=== PATIENT | female | born 1970 | race Caucasian/White ===

== ENCOUNTER 2017-08-07 07:00 | Inpatient (IN) | payer OTHER ==
--- NOTE | 2017-07-30 13:32 | HP ---
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 The MRI was c/w known cancer as well as a satellite lesion approx 8mm medial and superior to the main lesion. 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 Patient has opted to undergo a left breast WE with NL, snbx lympho, possible andx and right breast reduction mammoplasty. History Source: Patient Limitations to Obtaining History: No Limitations - Past Medical History Cardiovascular: Yes: Other (SVTs Raynauds) Gastrointestinal: Yes: Other (IBS) Psych: Yes: Depression Additional Past Medical History: h/o herpes narcolepsy cardiac ablation 2014 - Past Surgical History Past Surgical History: Yes: Cholecystectomy, Additional Past Surgical History: reduction mammoplasty (2000) Revision of mammoplasty (2001) Home Medications - Allergies Allergies/Adverse Reactions: Allergies Allergy/AdvReac Type Severity Reaction Status Date / Time Penicillins Allergy Verified 07/30/17 13:36 - Home Medications Home Medications (free text): alprazolam Family Disease History - Family Disease History Family Disease History: CA: Father (basal cell cancer), Mother (basal cell cancer ) Other Family History: paternal uncle-prostate cancer Review of Systems - Review of Systems Constitutional: reports: Malaise Cardiovascular: reports: Shortness of Breath, Other (syncope) Gastrointestinal: reports: Constipation, Diarrhea Psychiatric: reports: Depression Physical Examination Constitutional: Yes: Well Nourished, Calm Breast(s): Yes: Other (Patient has full C-cup breasts and well healed scars from mastopexy. No suspicious palpable masses or adenopathy noted bilaterally.) Problem List - Problems (1) Breast cancer, left Code(s): C50.912 - MALIGNANT NEOPLASM OF UNSPECIFIED SITE OF LEFT FEMALE BREAST Qualifiers: Breast location: upper outer quadrant of breast Estrogen receptor status: positive Patient sex: female Qualified Code(s): C50.412 - Malignant neoplasm of upper-outer quadrant of left female breast; Z17.0 - Estrogen receptor positive status [ER+] Assessment/Plan Plan left breast WE with NL, snbx, lymphoscintogram, possible andx and reconstruction.
[2017-08-05 12:25] VITALS: BMI 23.0
[2017-08-07] MEDS ORDERED: fentaNYL CITRATE 250 MCG/5 ML VIAL ONE (12:35)
[2017-08-07] MEDS ORDERED: LIDOCAINE HCL 2% JELLY (5 ML/TUBE) ONE (12:35)
[2017-08-07] MEDS ORDERED: DEXAMETHASONE SOD PHOSPHATE 4 MG/1 ML VIAL ONE (12:35)
[2017-08-07] MEDS ORDERED: ceFAZolin SODIUM 1 GM VIAL ONE (12:35)
[2017-08-07] MEDS ORDERED: PROPOFOL 20 ML ONE ×2 (12:35→15:59)
[2017-08-07] MEDS ORDERED: MIDAZOLAM HCL 2 MG/2 ML SINGLE DOSE VIAL ONE (12:35)
[2017-08-07] MEDS ORDERED: ONDANSETRON 4 MG/2 ML VIAL ONE (12:35)
[2017-08-07] MEDS ORDERED: LIDOCAINE HCL/PF 2% SDV 5ML VIAL ONE (12:35)
[2017-08-07] MEDS ORDERED: ROCURONIUM BROMIDE 50 MG/5 ML VIAL ONE (12:40)
[2017-08-07] MEDS ORDERED: CLINDAMYCIN PHOSPHATE 600 MG/4 ML VIAL ONE (13:17)
[2017-08-07] MEDS ORDERED: LIDOCAINE 1%/EPI 1:100000 (20 ML MULTI DOSE VIAL) ONE (13:19)
[2017-08-07] MEDS ORDERED: ISOSULFAN BLUE 10 MG/ML VIAL SQ ONE (13:19)
[2017-08-07] MEDS ORDERED: BUPIVACAINE HCL/PF 2.5 MG/ML - 30 ML VIAL IJ ONE (13:19)
[2017-08-07] MEDS ORDERED: LIDOCAINE 1%/EPI 1:100000 (50 ML MULTI DOSE VIAL) INF ONE (14:11)
[2017-08-07] MEDS ORDERED: ONDANSETRON 4 MG/2 ML VIAL IVPUSH PRN (14:23)
[2017-08-07] MEDS ORDERED: oxyCODONE HCL 5 MG TABLET PO PRN ×3 (14:23→15:32)
[2017-08-07] MEDS ORDERED: ACETAMINOPHEN 325 MG TABLET (FP) PO PRN (15:32)
[2017-08-07] MEDS ORDERED: ALPRAZolam 0.25 MG TABLET PO PRN (15:35)
[2017-08-07] MEDS ORDERED: DEXTROSE 5%-0.45% SALINE 1,000 ML IV SCH (15:45)
[2017-08-07] MEDS ORDERED: GLYCOPYRROLATE 0.2 MG/1 ML VIAL ONE (16:04)
[2017-08-07] MEDS ORDERED: NEOSTIGMINE METHYLSULFATE 0.5 MG/ML - 10 ML MDV ONE (16:04)
--- NOTE | 2017-08-07 16:43 | OP ---
Operative Note - Note: Operative Date: 08/07/17 Pre-Operative Diagnosis: left breast cancer Operation: right breast reduction for symmetry, oncoplastic reconstruction with reduction of left breast Surgeon: Humble Hinds Mold Closer Helper: Deborah Hutton Anesthesiologist/TWISTER HAND: Patience Mathis Anesthesia: General Estimated Blood Loss (mls): 30 Fluid Volume Replaced (mls): 1,300 Operative Report Dictated: Yes
--- NOTE | 2017-08-07 16:52 | SURG ---
Surgery Regulatory Affairs Assistant Note Regulatory Affairs Assistant: Deborah Hutton PA-C Date of Service: 08/07/17 Diagnosis: left breast cancer Procedure: right breast reduction for symmetry, oncoplastic reconstruction with reduction of the left breast I was present for the entirety of the operative procedure. For further detail, please refer to operative report. Visit type - Case Type Case Type: Scheduled - Emergency Emergency Visit: No - New patient This patient is new to me today: Yes Date on this admission: 08/07/17
--- NOTE | 2017-08-07 19:34 | OP ---
DATE OF OPERATION: 08/07/2017 PREOPERATIVE DIAGNOSIS: Upper outer quadrant left breast cancer with genetic susceptibility to breast cancer. POSTOPERATIVE DIAGNOSIS: Upper outer quadrant left breast cancer with genetic susceptibility to breast cancer. PROCEDURE: Left breast partial mastectomy with sentinel lymph node biopsy and mammographic needle localization with bilateral mastopexy reduction by Rosangela Hinds M.D. ANESTHESIA: General laryngeal mask airway anesthesia. PRIMARY SURGEON: Rosangela Ayala M.D. CLEANING TEAM MEMBER: Gabrielle Burch Primary surgeon for bilateral reduction mastopexy surgery was Rosangela Hinds M.D., with his first responder Gabrielle Cabrera. COMPLICATIONS: None. Briefly, the patient is a 46-year-old G1, P1, premenopausal white female with [place] descent with no family history of breast or ovarian cancer. She has a history of undergoing prior breast reduction mastopexy surgery. She was found to have asymmetry in the upper outer aspect of the left breast on screening mammography in June of 2017. Ultrasound core biopsy performed on July 04, 2017, showed a moderately differentiated cancer which was ER/HI positive and HER2 positive . MRI showed localized disease, though she did have a small satellite region measuring about 3 mm which was just superior and medial to the main cancer. 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 We spoke to her at length as well as her medical oncologist regarding her increased risk of breast cancer with this mutation. She was offered bilateral mastectomy but chose to have a lumpectomy with a reduction mastopexy on the left and a symmetry reduction mastopexy on the right. I did speak to her medical oncologist preoperatively who though she would be a candidate for Port-A-Cath and postoperative chemotherapy, but the patient is refusing a Port-A-Cath and wants to get the chemotherapy peripherally. The patient was brought in for the left breast wide excision bilateral mastopexy reduction surgery on August 07, 2017. She first underwent the mammographic needle localization and lymph node scintography at [facility] and was brought to the [place] holding area. In the holding area, site verification is made, and informed consent was obtained. She was marked preoperatively by the plastic surgeon. DESCRIPTION OF PROCEDURE: The patient was then brought into the operating room and laid on the OR table in a supine position. Venodynes were placed on lower extremities prior to induction. She received 600 mg of clindamycin preoperatively for incision due to her PENICILLIN allergy. She was given general laryngeal mask anesthesia. Both breasts were sterilely prepped and draped in the usual fashion and 3 mL of Lymphazurin blue were injected greer-tumorally around the left breast needle localization site and massage was instituted. The left axillary sentinel lymph node biopsy was first performed, and an incision was made just below the hair bearing area of the left axilla, and dissection was undertaken using the Neoprobe to direct the dissection. The first node removed was blue and hot with a 10-second gamma count of 5436. The second sentinel lymph node removed was only hot with a 10-second gamma count of 1977. No other blue or hot nodes were found, and background count was 479 after removing these 2 nodes. Hemostasis was achieved. At this point, the wide excision is undertaken around the upper outer aspect of the left breast with reduction mastopexy approach. The reduction mastopexy incision was marked out by the plastic surgeon, and using the periareolar incision with the reduction mastopexy, we were able to dissect over to the needle localization, the upper outer aspect of the left breast completely removed of tissue with the wire in the middle of it. A fair amount of tissue was removed, since she was having a reduction at the same time. The specimen was oriented with a long lateral, short superior suture, and specimen radiograph showed removal of the clip in question. At this point hemostasis was achieved and the wounds were copiously irrigated. At this point, Dr. Hinds became the primary surgeon, who performed the bilateral reduction mastopexy incisions and surgery, and this will be dictated separately. Both sentinel nodes were sent out for permanent section as well as the wide excision specimen. Separate margins were taken around the wide excision on the superior, inferior, medial, lateral, deep, and anterior margins, with sutures marked in the biopsy cavity side. Again, the rest of the dictation will be dictated by Dr. Rosangela Hinds, and all sponge, needle counts were correct at this point of the case. Estimated blood loss was about 30 mL. She was hemodynamically stable throughout. ROSANGELA AYALA M.D. [id number]
[2017-08-07] MEDS ORDERED: ONDANSETRON 4 MG/2 ML VIAL IVPB PRN (20:23)
[2017-08-07] MEDS: oxyCODONE HCL 5 MG TABLET PO PRN (20:27)
[2017-08-07] MEDS ORDERED: DESLORATADINE 5 MG PO SCH (22:00)
[2017-08-07] MEDS ORDERED: TOPIRAMATE 200 MG TABLET (FP) PO SCH (22:00)
[2017-08-07] MEDS ORDERED: valACYclovir HCL 500 MG TABLET (FP) PO SCH (22:00)
[2017-08-07] MEDS ORDERED: FLUoxetine HCL 20 MG CAPSULE (FP) PO SCH (22:00)
[2017-08-08] MEDS: oxyCODONE HCL 5 MG TABLET PO PRN ×3 (01:22→09:28)
[2017-08-08 06:43] VITALS: BP 105/55; PULSE 91; TEMP 97.8
--- NOTE | 2017-08-08 09:39 | PN ---
Progress Note (short form) - Note Progress Note: 46F POD1 s/p wide excision with reconstruction under general anesthesia. Pt states that pain is moderately well controlled, and does not report any anesthetic complications. AVSS. Continue current regimen.
--- NOTE | 2017-08-08 10:44 | PN ---
Progress Note, Physician Chief Complaint: Left breast cancer S/ P left breast wide excision sentenel node biopsy reduction mammoplasty with Dr Hinds POD #1 History of Present Illness: Pain is somewhat controlled with oxycodone . She called her phychiatrist to get a medication for insomnia when she is discharged today. - Current Medication List Current Medications: Active Medications Acetaminophen (Tylenol -) 650 mg PO Q4H PRN PRN Reason: FEVER Last Admin: 08/07/17 20:28 Dose: 650 mg Alprazolam (Xanax -) 0.5 mg PO Q24H PRN PRN Reason: ANXIETY Last Admin: 08/07/17 22:10 Dose: 0.5 mg Bupropion HCl (Wellbutrin Xl -) 300 mg PO [facility] Last Admin: 08/07/17 22:07 Dose: 300 mg Fentanyl (Sublimaze Injection -) 25 mcg IVPUSH [id number] PRN PRN Reason: PAIN Last Admin: 08/07/17 17:40 Dose: 25 mcg Fluoxetine HCl (Prozac -) 80 mg PO [facility] Last Admin: 08/07/17 22:06 Dose: 80 mg Dextrose/Sodium Chloride (D5-1/2ns -) 1,000 mls @ 100 mls/hr IV [facility] [place] Non-Formulary Medication (Norgestimate-Ethinyl Estradiol [Sprintec 28 Day Tablet ]) 1 each PO [facility] Ondansetron HCl (Zofran Injection) 4 mg IVPUSH Q6H PRN PRN Reason: NAUSEA AND/OR VOMITING Ondansetron HCl (Zofran Injection) 4 mg IVPB Q6H PRN PRN Reason: NAUSEA Oxycodone HCl (Roxicodone -) 5 mg PO Q4H PRN PRN Reason: PAIN LEVEL 1-5 Oxycodone HCl (Roxicodone -) 10 mg PO Q4H PRN PRN Reason: PAIN LEVEL 6-10 Last Admin: 08/08/17 09:28 Dose: 10 mg Topiramate (Topamax -) 200 mg PO [facility] Last Admin: 08/07/17 22:08 Dose: 200 mg Valacyclovir HCl (Valtrex -) 500 mg PO [facility] Last Admin: 08/07/17 22:07 Dose: 500 mg - Objective Vital Signs: Vital Signs Temperature 97.8 F 08/08/17 06:41 Pulse Rate 91 H 08/08/17 06:41 Respiratory Rate 18 08/08/17 06:41 Blood Pressure 105/55 08/08/17 06:41 O2 Sat by Pulse Oximetry (%) 100 08/08/17 06:42 Constitutional: Yes: No Distress Breast(s): Yes: Other (Bilateral incisions intact with steristrips , minimal swelling right > left left axilla incision intact with steristrips) Problem List - Problems (1) Breast cancer, left Code(s): C50.912 - MALIGNANT NEOPLASM OF UNSPECIFIED SITE OF LEFT FEMALE BREAST Qualifiers: Breast location: upper outer quadrant of breast Estrogen receptor status: positive Patient sex: female Qualified Code(s): C50.412 - Malignant neoplasm of upper-outer quadrant of left female breast; Z17.0 - Estrogen receptor positive status [ER+] Assessment/Plan Patient ready for discharge today follow up one week with Dr Hinds and Dr claudio rice prn pain She will follow up with psychiatrist for sleep medication
--- NOTE | 2017-08-09 09:22 | OP ---
DATE OF OPERATION: 08/07/2017 SURGEON: Ady Hinds MD [employer] SUPERINTENDENT SURGEON: Deborah Hutton PA-C PREOPERATIVE DIAGNOSIS: Left breast cancer. POSTOPERATIVE DIAGNOSIS: Left breast cancer. OPERATIVE PROCEDURE: 1. Left breast oncoplastic reconstruction with reduction and tissue rearrangement. 2. Right breast reduction for symmetry. OPERATIVE INDICATION: Patient is a young woman who was brought to the operating room today for a left breast cancer, and Dr. Ady Vieira performed his procedure of lumpectomy with sentinel lymph node biopsy which will be dictated under separate cover. Because of the large size of the breasts bilaterally and symmetrically in order to reduce the size of the patient's breasts and treat the cancer, the patient underwent an oncoplastic reconstruction of the left breast. The risks and benefits surgical versus nonsurgical alternatives as well as material complications were described to the patient preoperatively on multiple occasions as well as today in the holding area with her family, mother and sister, in attendance as well as Dr. Vieira. The patient was marked in the standing position for Escobar pattern reduction mammoplasty which she had previously undergone before and had Escobar pattern reduction scars on both sides. All questions were asked and answered regarding the implications, and the patient understood that she would require postoperative radiation therapy and may need revision surgery especially after the radiation in the future. OPERATIVE PROCEDURE IN DETAIL: Patient was taken to the operating room by Dr. Ady Vieira for the procedure. The patient was placed supine on the operating room table. Both arms were extended and padded. Venodyne boots were placed, and the markings were confirmed on both breasts. The needle localization and lymphoscintigram cups were removed by Dr. Vieira, and then, the markings were finished on the left breast for outline of the oncoplastic reduction for reconstruction. At this point, Dr. Vieira began the procedure on the left breast, and I began the procedure on the right breast for time saving and reduction of overall operative time. Dr. Vieira's portion of the operation will be dictated under separate cover. I began the procedure on the right breast by incising the Escobar pattern shaped excisions around the previous scars which had been long from sternum to lateral posterior axillary line on both sides with excision of careful amounts of skin for reduction. These were de-epithelialized according to the pattern. Hemostasis was meticulously obtained throughout, and then, blocks of tissue were removed from the right breast in order to reduce the overall volume to match the opposite side which required reduction. The right breast tissue removed was 147 g of tissue. This was sent for pathologic diagnosis separately because of the history of breast cancer and CHEK genetic mutation. Hemostasis was meticulously obtained throughout the pocket, and the pedicle itself was tacked using 2-0 Vicryl sutures in order to centralize the pedicle itself. Tissue was only removed in the medial and central portions of the breast, leaving both inferior glandular base as well as superior glandular base because of the previous breast reduction with unknown pedicles. This was then tailor tacked and temporized until the procedure was finished with Dr. Vieira. After the lumpectomy and lymph node dissection was carried out, hemostasis was meticulously obtained. Instruments were changed on the left side, and then, I began the oncoplastic reconstruction on the left breast. For symmetry and reconstruction of the left breast, incisions were made in the breast on the medial and lateral sides of the breast itself. Approximately similar amounts of tissue of weight were removed by Dr. Vieira and nd as approximately 150 g of tissue were removed from the left breast and then rearranged using 2-0 Vicryl sutures in order to advance the tissue upon itself. The skin and subcutaneous tissue were also de-epithelialized according to the patterns, and the pedicle itself was then centralized using 2-0 Vicryl sutures and centralized to match the opposite side. Tailor tacking was then achieved. The patient was sat into the sitting position. Good symmetry was seen at the end of the procedure, and blocks of tissue totaling very close amounts were obtained. At this point, the wounds were closed in exactly the same fashion with 2-0 Vicryl on the deep side and 3-0 Biosyn in the deep dermal fashion and 4-0 V-Loc suture in a running subcuticular fashion on the breast themselves. The nipple-areolar complexes were inset using 4-0 V-Loc sutures. Dermabond, Steri-Strip dressings were placed over both breasts. Good symmetry was seen at the end of the procedure. She was awakened, extubated, and transferred to the recovery room in satisfactory condition, tolerated the procedure well. ADY HINDS M.D. [id number] MTDD
--- NOTE | 2017-08-13 18:09 | PATH ---
Surgical Pathology Report Patient Name: KARIN OLMSTEAD Med. Rec. #: [id number] /Age/Gender: 1970 (Age: 46) / F Account: [id number] Location: [facility] MED-SURG Taken: 08/07/2017 Received: 08/07/2017 Reported: 08/13/2017 Physicians: Ady Vieira M.D. Specimen(s) Received A: LEFT SENTINEL LYMPH NODE #1 B: LEFT SENTINEL LYMPH NODE #2 C: RIGHT BREAST TISSUE D: LEFT BREAST WIDE EXCISION E: LEFT BREAST SUPERIOR MARGIN F: LEFT BREAST INFERIOR MARGIN G: LEFT BREAST LATERAL MARGIN H: LEFT BREAST MEDIAL MARGIN I: LEFT BREAST ANTERIOR MARGIN J: LEFT BREAST DEEP MARGIN K: LEFT BREAST TISSUE LOWER OUTER QUADRANT L: LEFT BREAST TISSUE LOWER MEDIAL QUADRANT Clinical History Left invasive breast cancer, right mastopexy for symmetry Final Diagnosis A. SENTINEL LYMPH NODE #1, LEFT, EXCISION: ONE BENIGN LYMPH NODE (0/1). B. SENTINEL LYMPH NODE #2, LEFT, EXCISION: ONE BENIGN LYMPH NODE (0/1) C. BREAST TISSUE, RIGHT, EXCISION: BENIGN BREAST TISSUE WITH FIBROCYSTIC CHANGES INCLUDING STROMAL FIBROSIS, MICROCYSTS, AND APOCRINE METAPLASIA. SKIN WITHOUT SIGNIFICANT PATHOLOGIC FINDINGS. D. BREAST, LEFT, WIDE EXCISION: INVASIVE DUCTAL CARCINOMA, POORLY DIFFERENTIATED (TUBULE SCORE: 3/3, NUCLEAR GRADE: 3/3, MITOTIC SCORE: 3/3; TOTAL ANNA SCORE: 9/9). INVASIVE CARCINOMA MEASURES 1.3 CM IN GREATEST DIMENSION, MICROSCOPICALLY. 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 LYMPHOVASCULAR PRESENT. SURGICAL MARGINS ARE UNINVOLVED BY CARCINOMA; CARCINOMA IS AT 7 MM FROM THE CLOSEST LATERAL AND DEEP MARGINS. SEE PARTS E-J FOR FINAL MARGINS. REMAINDER OF BREAST TISSUE SHOWS FIBROCYSTIC CHANGES INCLUDING STROMAL FIBROSIS AND MICROCYSTS. PRIOR BIOPSY SITE CHANGES PRESENT. PATHOLOGIC STAGE (pTNM): pT1c pN0 (sn). SEE INVASIVE CARCINOMA CASE SUMMARY BELOW. E. BREAST, LEFT, SUPERIOR MARGIN, EXCISION: BENIGN BREAST TISSUE. F. BREAST, LEFT, INFERIOR MARGIN, EXCISION: BENIGN BREAST TISSUE. G. BREAST, LEFT, LATERAL MARGIN, EXCISION: BENIGN BREAST TISSUE. H. BREAST, LEFT, MEDIAL MARGIN, EXCISION: BENIGN BREAST TISSUE. I. BREAST, LEFT, ANTERIOR MARGIN, EXCISION: BENIGN BREAST TISSUE. J. BREAST, LEFT, DEEP MARGIN, EXCISION: BENIGN BREAST TISSUE AND SKELETAL MUSCLE. K. BREAST, LEFT, LOWER OUTER QUADRANT, EXCISION: BENIGN BREAST TISSUE. SKIN WITHOUT SIGNIFICANT PATHOLOGIC FINDINGS. L. BREAST, LEFT, LOWER MEDIAL QUADRANT, EXCISION: BENIGN BREAST TISSUE. Comment: Immunohistochemical stains performed at [place], [place] ([id number]) and interpreted at [facility] for D2-40 highlight lymphovascular invasion. Comments Breast Invasive Carcinoma: Surgical Pathology Case Summary (Based on AJCC TNM 8 th edition) Procedure _X_ Excision (less than total mastectomy) Specimen Laterality _X_ Left Tumor Size _X_ Greatest dimension of largest invasive focus >1 mm (specify exact measurement) (millimeters): _13_ mm Histologic Type _X_ Invasive carcinoma of no special type (ductal, not otherwise specified) Histologic Grade (Anna Histologic Score) Glandular (Acinar)/Tubular Differentiation _X_ Score 3 (<10% of tumor area forming glandular/tubular structures) Nuclear Pleomorphism _X_ Score 3 Mitotic Rate _X_ Score 3 Overall Grade _X_ Grade 3 (scores of 9) Tumor Focality _X_ Single focus of invasive carcinoma Ductal Carcinoma In Situ (DCIS) _X_ DCIS is present in specimen _X_ Positive for EIC Margins Invasive Carcinoma Margins _X_ Uninvolved by invasive carcinoma Distance from closest margin (millimeters): 7 mm Closest margin: lateral and deep DCIS Margins _X_ Uninvolved by DCIS Distance from closest margin (millimeters): _7_ mm Closest margin: lateral and deep Regional Lymph Nodes Number of Lymph Nodes with Macrometastases (>2 mm): 0 Number of Lymph Nodes with Micrometastases (>0.2 mm to 2 mm and/or >200 cells): 0 Number of Lymph Nodes with Isolated Tumor Cells (=0.2 mm and =200 cells): 0 Number of Lymph Nodes Examined: 2 Number of Kayenta Nodes Examined : 2 Treatment Effect _X_ No known presurgical therapy Lymphovascular Invasion _X_ Present Pathologic Stage Classification (pTNM, AJCC 8th Edition) Primary Tumor (Invasive Carcinoma) (pT) _X_ pT1c: Tumor >10 mm but =20 mm in greatest dimension Regional Lymph Nodes (pN) Modifier (required only if applicable) _X_ (sn): Kayenta node(s) evaluated. Category (pN) _X__ pN0: No regional lymph node metastasis identified Biomarker Studies Results of ER and MO studies performed on this specimen (block#D3) at [facility] are as follows: ER (clone [id number] mouse monoclonal antibody by [employer]): 80% nuclear staining with moderate to strong intensity (Positive). MO (clone16 mouse monoclonal antibody by [employer]): 90% nuclear staining with strong intensity (Positive). Results of Her2 (IHC) & Ki-67 studies performed on this specimen (block#D3) at [place], [place] ([id number]) are as follows: Her2 IHC (EP3 from [employer], formerly known as [id number], using [employer] Polymer Refine detection kit): 3+ (Positive) Ki67: ~25% (Intermediate proliferative index) Positive and negative controls (internal if applicable) show appropriate results. Formalin fixation and cold ischemic times are within current ASCO/CAP recommendations for ER, MO and Her2 testing.. Electronically Signed Estela Lezama M.D. Gross Description A. Received in formalin labeled "left sentinel lymph node #1," is a 2.0 x 1.2 x 0.6 cm lymph node with attached fat. The specimen is bisected and entirely submitted in one cassette. B. Received in formalin labeled "left sentinel lymph node #2," is a 0.7 x 0.6 x 0.2 cm lymph node with attached fat. The specimen is submitted in toto in one cassette. C. Received in formalin labeled "right breast tissue," is a 156 g, 12.0 x 11.0 x 4.0 cm aggregate of multiple unoriented portions of fibroadipose tissue and edmond, unremarkable skin. Sectioning reveals abundant dense, white, focally firm fibrous tissue. Meat Soaker sections are submitted in 4 cassettes. D. Received in formalin, labeled "left breast wide excision," is a 9.0 x 7.5 x 4.0 cm. edmond-yellow, irregular, portion of fibroadipose tissue with a needle localization wire present. There is a short suture marking the superior aspect and a long suture marking the lateral aspect, per the surgeon. There is no skin or nipple present. The specimen is inked as follows: superior blue; inferior green; medial yellow; anterior and lateral red; deep black. The specimen is serially sectioned from anterior to deep. Sectioning reveals a 1.3 x 1.3 x 0.9 cm ill-defined mass at 0.7 cm from the lateral margin. The mass is 1.5 cm from the medial margin. The remaining margins appear clear of the mass. Meat Soaker sections are submitted in 9 cassettes as follows: 1-fullface section of mass with lateral margin; 6-2-mwzlcfoljs sections of mass, each with lateral margin; 4-5-medial margin; 6-inferior margin; 7-superior margin; 8-anterior margin; 9-deep margin. Time to formalin fixation: 55 minutes Total formalin fixation time: Approximately 26 hours. E. Received in formalin labeled "left breast superior margin," is a 3.0 x 2.4 x 0.8 cm portion of fibroadipose tissue with a suture marking the biopsy cavity side, per the surgeon. The new margin is inked blue and the specimen is serially sectioned. The specimen is entirely submitted in 3 cassettes. F. Received in formalin labeled "left breast inferior margin," is a 3.1 x 2.8 x 0.8 cm portion of fibroadipose tissue with a suture marking the biopsy cavity side, per the surgeon. The new margin is inked blue and the specimen is serially sectioned. The specimen is entirely and sequentially submitted in 4 cassettes. G. Received in formalin labeled "left breast lateral margin," is a 2.8 x 1.8 x 0.7 cm portion of fibroadipose tissue with a suture marking the biopsy cavity side, per the surgeon. The new margin is inked blue and the specimen is serially sectioned. The specimen is entirely submitted in 3 cassettes. H. Received in formalin labeled "left breast medial margin," is a 4.0 x 3.7 x 1.7 cm portion of fibroadipose tissue with a suture marking the biopsy cavity side, per the surgeon. The new margin is inked blue and the specimen is serially sectioned. The specimen is entirely and sequentially submitted in 6 cassettes. I. Received in formalin labeled "left breast anterior margin," is a 2.7 x 2.4 x 0.9 cm portion of fibroadipose tissue with a suture marking the biopsy cavity side, per the surgeon. The new margin is inked blue and the specimen is serially sectioned. The specimen is entirely submitted in 3 cassettes. J. Received in formalin labeled "left breast deep margin," is a 2.8 x 2.6 x 0.5 cm portion of fibroadipose tissue with a suture marking the biopsy cavity side, per the surgeon. The new margin is inked blue and the specimen is serially sectioned. The specimen is entirely submitted in 3 cassettes. K. Received in formalin labeled "left breast tissue lower outer quadrant," is a 51 g, 6.7 x 5.0 x 4.0 cm unoriented portion of fibroadipose tissue as well as abundant edmond skin fragments. Sectioning reveals foci of dense, white, firm fibrous tissue. Meat Soaker sections are submitted in 2 cassettes. L. Received in formalin labeled "left breast tissue lower medial quadrant," is a 37 g, 6.2 x 5.8 x 2.8 cm unoriented portion of fibroadipose tissue. Sectioning reveals foci of white fibrous tissue. Meat Soaker sections are submitted in one cassette. 08/08/201708/08/2017
== END 2017-08-08 12:54 | disposition home or self-care (01) | DRG 581 ==
LOC: FASU 07:00 → FM/S 15:32
PROVIDERS: ADMIT Surgery Surgical Oncology; ATTEND Surgery Surgical Oncology
PROC: 0HBU0ZZ Excision of Left Breast, Open Approach (ICD-10-PCS; principal; 2017-08-07 13:30)
PROC: 07B60ZX Excision of Left Axillary Lymphatic, Open Approach, Diagnostic (ICD-10-PCS; 2017-08-07 13:30)
PROC: 0H0U0ZZ Alteration of Left Breast, Open Approach (ICD-10-PCS; 2017-08-07 13:30)
DX: C50.412 Malignant neoplasm of upper-outer quadrant of left female breast (principal); Z17.0 Estrogen receptor positive status [ER+]
CPT/HCPCS: 19281; 78195-TC; 84703; 88305-TC; 88307-TC; 88342-TC; 94760; A9541

== ENCOUNTER 2017-09-03 07:14 | Day surgery (SDC) | payer OTHER ==
[2017-09-01 09:54] VITALS: BMI 23.0
[2017-09-03] MEDS ORDERED: MIDAZOLAM HCL 2 MG/2 ML SINGLE DOSE VIAL ONE (10:31)
[2017-09-03] MEDS ORDERED: LIDOCAINE 1%/EPI 1:100000 (20 ML MULTI DOSE VIAL) ONE ×2 (10:51→12:43)
[2017-09-03] MEDS ORDERED: ceFAZolin SODIUM 1 GM VIAL ONE (11:00)
[2017-09-03] MEDS ORDERED: KETOROLAC TROMETHAMINE 30 MG/1 ML VIAL ONE (11:00)
[2017-09-03] MEDS ORDERED: ONDANSETRON 4 MG/2 ML VIAL ONE (11:00)
[2017-09-03] MEDS ORDERED: LIDOCAINE HCL/PF 2% SDV 5ML VIAL ONE (11:00)
[2017-09-03] MEDS ORDERED: DEXAMETHASONE SOD PHOSPHATE 4 MG/1 ML VIAL ONE (11:00)
--- NOTE | 2017-09-03 11:33 | OP ---
Operative Note - Note: Operative Date: 09/03/17 Pre-Operative Diagnosis: Right breast wound Operation: Closure of right breast wound Post-Operative Diagnosis: Same as Pre-op Surgeon: Humble Hinds Propeller Tester: Dutch Guajardo Anesthesiologist/HIGH SCHOOL BUSINESS TEACHER: Krishna Andrew Anesthesia: MAC Estimated Blood Loss (mls): 10 Fluid Volume Replaced (mls): 500 Operative Report Dictated: Yes
--- NOTE | 2017-09-03 11:36 | SURG ---
Surgery Graphic Production Artist Note Graphic Production Artist: Dutch Guajardo PA-C Date of Service: 09/03/17 Diagnosis: Right breast wound Procedure: Right breast wound closure I was present for the entirety of the operative procedure. For further detail, please refer to operative report.
[2017-09-03] MEDS ORDERED: oxyCODONE HCL 5 MG TABLET PO PRN ×2 (11:38)
[2017-09-03] MEDS ORDERED: ONDANSETRON 4 MG/2 ML VIAL IVPUSH PRN (11:38)
[2017-09-03] MEDS ORDERED: PROMETHAZINE HCL 25 MG/1 ML VIAL IVPUSH PRN (11:38)
[2017-09-03 12:50] VITALS: TEMP 98.6
[2017-09-03 14:08] VITALS: BP 98/62; PULSE 90
--- NOTE | 2017-09-04 09:31 | OP ---
DATE OF OPERATION: 09/03/2017 SURGEON: Rosangela Hinds MD LIQUEFIED NATURAL GAS PLANT OPERATOR SURGEON: BRIDGETTE Walker PREOPERATIVE DIAGNOSIS: Skin necrosis and breakdown of right breast status post breast reconstructive procedure. POSTOPERATIVE DIAGNOSIS: Skin necrosis and breakdown of right breast status post breast reconstructive procedure. OPERATIVE PROCEDURE: Right breast reconstruction with other-technique revisional procedure.Tissue rearrangement due to skin necrosis. INDICATION: Patient is a young woman who underwent bilateral procedure for breast cancer. The right breast showed skin breakdown with separation of the wound on the vertical periareolar and inframammary incisions, which required closure because of beginning chemotherapy. These open wounds were a source of potential infection , and she was brought to the operating room for definitive reconstruction and closure with other technique. OPERATIVE PROCEDURE IN DETAIL: The patient was taken to the operating room, and after monitored care anesthesia in supine position, the patient's wounds were examined. The skin breakdown was seen on the 4 o'clock position on the nipple-areolar complex, the vertical limb, and the inframammary fold. These areas had been discussed preoperatively with the patient and her mother in attendance and marked in the standing position preoperatively in the holding area. She agreed to the planned procedure. After prepping and draping in the usual fashion and timeout, attention was turned to the wound itself. Then, 1% local lidocaine anesthesia with 1:100,000 epinephrine was injected into these areas around the front and lower pole of the breast. After allowing topical anesthesia and hemostasis, an incision was made in pie- shaped fashion on the nipple-areolar complex, excising a block of tissue at the 3 o' clock position and then also excising the lower vertical limb of the incision down through the skin to the subcutaneous tissue, down to the underlying viable breast itself. The skin was excised and sent for pathologic diagnosis. At this point, hemostasis was meticulously obtained throughout the procedure, and then, advancement flaps had to be created in order to close and advance the wound upon itself. Using electrocautery and rearrangement fashion, flaps were created superiorly, inferiorly, laterally, and in the inferior pole of the breast, advancing the skin and subcutaneous tissue into its new position. The wounds were then closed in layers using 3-0 PDS suture in deep dermal fashion and a second layer of suture using 4-0 nylon sutures in interrupted fashion for vertical mattress closures on the wounds themselves. Because of the need for chemotherapy within the next few weeks, the patient required this procedure for her treatment. All wounds were dressed sterilely with Dermabond and Steri-Strip dressing. She tolerated the procedure well. She was transferred to the recovery room in satisfactory condition and tolerated the procedure well. ROSANGELA HINDS M.D. [id number] MTDD
--- NOTE | 2017-09-05 15:03 | PATH ---
Surgical Pathology Report Patient Name: KARIN OLMSTEAD [facility]. Rec. #: [id number] /Age/Gender: 1970 (Age: 47) / F Account: [id number] Location: [facility] AMBULATORY Taken: 09/03/2017 Received: 09/03/2017 Reported: 09/05/2017 Physicians: Humble Hinds Specimen(s) Received RIGHT BREAST TISSUE Clinical History Breast cancer Final Diagnosis BREAST TISSUE, LEFT, EXCISION: SKIN WITH ULCERATION AND MARKED ACUTE NECROTIZING INFLAMMATION INVOLVING UNDERLYING SUBCUTANEOUS TISSUE. Electronically Signed Rosario Palencia M.D. Gross Description Received in formalin labeled "left breast tissue," is a 3 g, 3.3 x 2.0 x 0.8 cm aggregate of edmond, unoriented, focally ulcerated skin fragments. Environmental Science Technician sections are submitted in one cassette. /09/04/2017 [facility]09/04/2017
== END 2017-09-03 14:10 | disposition home or self-care (01) ==
LOC: FASU 07:14
PROVIDERS: ATTEND Plastic Surgery
PROC: 0HRT07Z Replacement of Right Breast with Autologous Tissue Substitute, Open Approach (ICD-10-PCS; principal; 2017-09-03 09:30)
DX: T85.898A Other specified complication of other internal prosthetic devices, implants and grafts, initial encounter (principal); N64.1 Fat necrosis of breast; L76.82 Other postprocedural complications of skin and subcutaneous tissue
CPT/HCPCS: 84703